=== PATIENT | female | born 1955 | race Caucasian/White ===

== ENCOUNTER 2024-12-29 18:16 | Emergency (ER) | payer MEDICARE, OTHER, SELFPAY ==
[2024-12-29 18:17] VITALS: BP 147/121; PULSE 81; RESP 16; TEMP 36.6; O2SAT 99; BMI 21.7
[2024-12-29] MEDS: Lidocaine 1% (20 ml mdv) 20 ML Vial INFILT (19:13)
[2024-12-29 19:18] VITALS: BP 173/67; PULSE 67; RESP 16; TEMP 36.6; O2SAT 99
--- NOTE | 2024-12-29 19:55 | EDS_ITS ---
HPI History of Present Illness Chief Complaint: Laceration Informant: patient and spouse/S.O. Narrative Narrative: 69-year-old female presenting to the emergency room with left hand laceration. Patient was trying to get the pit out of a avocado when she sustained a puncture wound to the palm of the left hand. She notes that her middle finger feels different than the other fingers. She states she can feel it it just feels less sensate. Bleeding was controlled with pressure. Unknown last tetanus. Tetanus Immunization: Unknown PFSH PFSH Allergy/AdvReac Type Severity Reaction Status Date / Time Penicillins Allergy Intermediate HIVES Verified 12/29/24 18:19 Social History Smoking Status: Never smoker ROS ROS ED Constitutional Constitutional ED: Denies chills or weight loss Eyes Eyes: Denies change in vision or diplopia ENT ENT ED: Denies ear pain, rhinorrhea or sore throat Cardiovascular Cardiovascular: Denies chest pain, orthopnea, palpitations or racing heartbeat Respiratory/Chest Respiratory/Chest: Denies cough, dyspnea or orthopnea Gastrointestinal Gastrointestinal: Denies abdominal pain, diarrhea, nausea or vomiting Genitourinary Genitourinary ED: Denies dysuria, hematuria or urinary frequency Musculoskeletal Musculoskeletal: Denies arthralgias or myalgias Integumentary Reports other Details: Puncture wound/laceration left palm ; Denies abscess or rash Neurologic Neurologic: Denies headache(s) or weakness Psychiatric Psychiatric: Denies anxiety, depression, suicidal ideation or suicidal thoughts Endocrine Endocrinology: Denies polydipsia, polyphagia or polyuria Allergic/Immunologic Allergic/Immunologic ED: Denies mouth swelling, tongue swelling or urticaria EXAM Physical Exam Const Vital Signs: 12/29/24 18:17 12/29/24 19:18 Temperature 98 F 98 F Temperature Source Oral Pulse Rate 81 67 Respiratory Rate 16 16 Blood Pressure 147/121 H 173/67 H Blood Pressure Mean 129 102 Pulse Ox 99 99 Oxygen Delivery Method Room Air Positive well nourished and well developed General Appearance ED: well developed and NAD HEENT Reports normocephalic, head/scalp atraumatic and moist mucous membranes Eyes PERRL and EOMs intact bilaterally Neck no lymphadenopathy, supple and no JVD Resp normal respiratory effort and clear to auscultation bilaterally Cardio regular rate, regular rhythm and no murmurs GI normal to inspection, nondistended, normoactive bowel sounds and non-tender Palpation: soft Back/Spine no CVA tenderness and normal ROM Extremity Extremity Narrative: Left palm demonstrates a linear half centimeter laceration in the mid. It is located along the third metacarpal. She has excellent tendon function both profundus and superficialis. Distally sensation is preserved but she states that it feels less sensate than the others. Vascularly she has excellent capillary refill. There is minor hematoma formation noted at the puncture site. General Extremety ED: Negative for edema General Extremity: Negative for edema Neuro oriented x3 and CN's II-XII intact bilaterally Sensorium / Orientation: alert Motor Exam: strength 5/5 throughout Psych mental status grossly normal Mood & Affect: Negative for depressed or tearful Skin no rashes or lesions noted and no wounds MDM MDM MDM Narrative Medical decision making narrative: Differential diagnosis includes but not limited to tendon laceration nerve injury vascular injury laceration foreign body Wound was locally anesthetized using 1% lidocaine in the subcutaneous tissue. She states the middle finger is even more less sensate after the injection. The wound was explored. It was washed with Shur-Clens. 2 simple interrupted 4-0 Ethilon sutures were placed. Wound will be dressed by nursing. It was explained to the patient and her that the nerve injury may be temporary or may be permanent. It is difficult to say at this time. Should she have continued symptoms she needs to most likely follow-up with hand surgery. In a week to 10 days she needs to have the sutures removed. Patient to start with primary care. Patient to provide local wound care return if worsening or concerns History & Record Review Discussion w/independent historian: Patient and Significant other Discharge Plan Triage Chief Complaint: Laceration ED Provider: Dov Casiano Dx/Rx/DC Orders Clinical Impression: Laceration of left palm, Neurapraxia Instructions: ED Hand Laceration Nerve Injury Primary Care Provider: Care Physician,No Primary Referrals: Rita Rios MD [Med Staff - [employer], Internal Medicine] - 7 Days for suture removal Print Language: Chinese Disposition Disposition: Home, Self Care Discharge Date/Time: 12/29/24 19:27
== END 2024-12-29 19:27 | disposition home or self-care (01) ==
LOC: ED 19:25
PROVIDERS: Emergency Provider Emergency Medicine; Visit Provider Emergency Medicine
DX: S61.412A Laceration without foreign body of left hand, initial encounter (principal); W26.0XXA Contact with knife, initial encounter; Y93.G3 Activity, cooking and baking; Z23 Encounter for immunization
CPT/HCPCS: 12001; 90715; 99283